=== PATIENT | female | born 1955 | race Caucasian/White ===

== ENCOUNTER 2020-09-06 13:57 | Emergency (ER) | payer MEDICARE, OTHER, SELFPAY ==
[2020-09-06 13:59] VITALS: BP 145/92; PULSE 86; RESP 16; TEMP 36.8; O2SAT 98; BMI 31.1
[2020-09-06 14:05] VITALS: BP 151/94; PULSE 89; RESP 18; O2SAT 99
--- NOTE | 2020-09-06 14:05 | XR_ITS ---
PROCEDURE: XR CHEST PORTABLE CLINICAL HISTORY: cough COMPARISON: No exams were available for comparison FINDINGS: The cardiomediastinal silhouette and pulmonary vascularity are within normal limits. The lungs are clear without infiltrates, suspicious nodules, or pleural effusions. There is a faint nodular opacity in the right upper lobe at the 3rd interspace anteriorly nonspecific and may be better evaluated with upright PA and lateral chest. No acute bony abnormalities. IMPRESSION: No acute finding. Possible small 3 mm right upper lobe nodule which may be better evaluated with upright PA and lateral chest. Dictated by: Vic Mathis MD 09/06/2020 15:00 Vic Mathis MD in [place] 09/06/2020 15:00
--- NOTE | 2020-09-06 14:22 | [facility].EDGENADL ---
ED Disposition Clinical Impression: Generalized weakness Disposition: Home, Self-Care Condition on Discharge: Good Referrals: Jatin Roman MD [Primary Care Provider] - - Critical Care Critical Care Time: No Attestation: On 09/06/20, the high probability of a clinically significant, sudden or life threatening deterioration of the following system(s) required my full and direct attention, intervention and personal management. The time I documented below is in addition to time spent performing reported procedures but includes the following listed in this critical care notation. Medical Decision Making - Medical Records Medical records reviewed: Yes: I reviewed the patient's medical records. - Bryce Inquiry Pt receiving controlled substance: No Vital Signs: 09/06/20 13:59 09/06/20 14:05 Temperature 98.2 F Temperature Source Oral Pulse Rate [Radial] 86 89 Respiratory Rate 16 18 Blood Pressure [Right Arm] 145/92 H 151/94 H Blood Pressure Mean [Right Arm] 109 113 Blood Pressure Position [Right Arm] Sitting 02 Sat by Pulse Oximetry 98 99 Oxygen Delivery Method Room Air - Lab Data Lab Results 09/06/20 15:00: WBC 7.4, RBC 4.54, Hgb 14.5, Hct 44.5, MCV 98.1, MCH 31.9 H, MCHC 32.6, RDW 13.4, Plt Count 251, MPV 7.1 L, Neut % (Auto) 52.9, Lymph % (Auto) 37.8, [place] % (Auto) 6.6, Eos % (Auto) 1.9, Baso % (Auto) 0.7, Neut # (Auto) 3.9, Lymph # (Auto) 2.8, [place] # (Auto) 0.5, Eos # (Auto) 0.1, Baso # (Auto) 0.1 09/06/20 15:00: Sodium 136, Potassium 4.3, Chloride 103, Carbon Dioxide 30, Anion Gap 7.3, BUN 5 L, Creatinine 0.70, Estimated Creat Clear 69, Estimated GFR 84, Est GFR ( Amer) 102, Glucose 122 H, Calcium 9.3, Total Bilirubin 0.3, AST 25, ALT 24, Alkaline Phosphatase 89, Troponin I < 0.01, Total Protein 6.7, Albumin 4.0, Globulin 2.7, Albumin/Globulin Ratio 1.5, Lipase 21 L 09/06/20 15:15: Urine Color Yellow, Urine Appearance Clear, Urine pH 7.0, Ur Specific [place] 1.010, Urine Protein Negative, Urine Glucose (UA) Negative, Urine Ketones Negative, Urine Blood Negative, Urine Nitrate Negative, Urine Bilirubin Negative, Urine Urobilinogen 0.2, Ur Leukocyte Esterase Negative Result diagrams: 09/06/20 15:00 09/06/20 15:00 Orders (Tests/Meds): ORDERS Category Date Time Status Troponin I Q3H Lab 09/06/20 17:15 Ordered Troponin I Q3H Lab 09/06/20 20:15 Ordered Urinalysis and Microscopic Stat Lab 09/06/20 15:15 Results - Radiology Data #1 Image(s): Chest Image Reviewed: Yes I reviewed the patient's radiology results, Yes I discussed the image results w/the radiologist, Yes I have reviewed radiologist's interpretation IMPRESSION: No acute finding. Possible small 3 mm right upper lobe nodule which may be better evaluated with upright PA and lateral chest. - ECG Data Tracing #1 Normal ventricular rate of 76 bpm, normal [place] interval, normal QTC, normal sinus rhythm with nonspecific changes. ECG initial impression date: 09/06/20 ECG initial impression time: 15:18 - Reevaluation(s) Time: 16:05 Reevaluation #1: On reevaluation, patient is feeling better. Blood pressure is improved. Patient needs follow-up with PCP in 48 hours. Given strict return precautions. Verbalized understanding. Medical Decision Narrative: 65-year-old female presented to the emergency department with generalized weakness. The patient is complaining of some lethargic. Blood pressure appears to be improved on arrival. Work-up initiated. General Adult HPI - General Chief complaint: Weakness Stated complaint: unk Time Seen by Provider: 09/06/20 14:00 Mode of Arrival: EMS Limitations: No Limitations Description of Symptoms (Recalled from ER Triage Doc. by RN): to ed per squad states I don't feel well, I've been sleeping all day . pt denies any other symptoms. states recently started buspar - History of Present Illness HPI narrative: 65-year-old female presented to the emergency departme
[2020-09-06 15:13] LABS: Basophils # 0.1 K/mm3 (0-0.2); Basophils % 0.7 % (0.1-2.0); Eosinophils # 0.1 K/mm3 (0.0-0.4); Eosinophils % 1.9 % (0.1-12.0); Hematocrit 44.5 % (37.0-47.0); Hemoglobin 14.5 g/dL (12.2-16.2); Lymphocytes # 2.8 K/mm3 (0.7-4.5); Lymphocytes % 37.8 % (10-50); Mean Corpuscular HGB Conc 32.6 g/dL (31.8-35.4); Mean Corpuscular Hemoglobin 31.9 pg (27.0-31.2); Mean Corpuscular Volume 98.1 fl (81-99); Mean Platelet Volume 7.1 fl (7.4-10.4); Monocytes # 0.5 K/mm3 (0.1-1.0); Monocytes % 6.6 % (1.7-9.3); Neutrophils # 3.9 K/mm3 (1.8-7.8); Neutrophils % 52.9 % (37.0-80.0); Platelet Count 251 K/mm3 (142-424); Red Blood Count 4.54 M/mm3 (4.20-5.40); Red Cell Distribution Width 13.4 % (11.5-17.5); White Blood Count 7.4 K/mm3 (4.8-10.8)
--- NOTE | 2020-09-06 15:17 | ECG_ITS ---
APPROVED REPORT Exam: Resting ECG HR:76 bpm ECG Measurements Heart Rate 76 AXES NH 190 P 60 QRSd 94 QRS 33 QT 388 T 20 QTc 436 Conclusion Normal sinus rhythm Incomplete right bundle branch block Borderline ECG Electronically signed by : Manas Thacker, 09/07/2020 06:33:09
[2020-09-06 15:20] LABS: Microscopic, Urine URINE MICROSCOPIC (MICROSCOPIC)
[2020-09-06 15:20] LABS: Alanine Aminotransferase 24 U/L (12-78); Albumin/Globulin Ratio 1.5 (1.1-1.8); Alkaline Phosphatase 89 U/L (38-126); Anion Gap 7.3 mEq/L (5-15); Aspartate Amino Transferase 25 U/L (14-36); Bilirubin,Total 0.3 mg/dl (0.2-1.3); Blood Urea Nitrogen 5 mg/dl (7-17); Calcium 9.3 mg/dl (8.4-10.2); Carbon Dioxide 30 mmol/L (22.0-30.0); Chloride 103 mmol/L (98-107); Creatinine Clearance Estimated 69 mL/min (50-200); Estimated Glomerular Filt Rate 84 ml/min (>60); GFR (African American) 102 ML/MIN (>60); Globulin 2.7 g/dL (1.3-3.2); Glucose 122 mg/dl (74-100); Lipase 21 U/L (23-300); Potassium 4.3 mmoL/L (3.5-5.1); Sodium 136 mmol/L (136-145); Total Protein,Serum 6.7 g/dl (6.3-8.2)
[2020-09-06 15:26] LABS: Appearance,Urine CLEAR (Clear); Bilirubin,Urine Negative (Negative); Blood, Urine Negative (Negative); Color,Urine YELLOW (Yellow); Glucose,Urine (UA) Negative (Negative); Ketones,Urine Negative (Negative); Leukocyte Esterase,Urine Negative (Negative); Nitrate,Urine Negative (Negative); Protein,Urine Negative (Negative); Urobilinogen,Urine 0.2 EU/dl (0.2)
[2020-09-06 15:34] LABS: Troponin I < 0.01 ng/ml (0.00-0.034)
[2020-09-06 16:22] LABS: Bacteria,Urine 2+ /lpf
[2020-09-06 16:38] VITALS: BP 127/78; PULSE 78; RESP 16; TEMP 36.6; O2SAT 98
== END 2020-09-06 16:39 | disposition home or self-care (01) ==
PROVIDERS: Emergency Provider Emergency Medicine; PCP Emergency Medicine
DX: R53.83 Other fatigue (principal); R03.0 Elevated blood-pressure reading, without diagnosis of hypertension; Z88.0 Allergy status to penicillin; Z88.8 Allergy status to other drugs, medicaments and biological substances
CPT/HCPCS: 36415; 71045; 80053; 81001; 83690; 84484; 85025; 87086; 87088; 87186; 93005; 99284